=== PATIENT | male | born 1960 | race Two or more races ===

== ENCOUNTER 2017-09-16 15:24 | Emergency (ER) | payer SELFPAY ==
[~2017-09-16] VITALS: Ht 167.6 cm; Wt 73.0 kg
[2017-09-16] MEDS ORDERED: ACETAMINOPHEN 325MG TABLET PO ONE (17:15)
[2017-09-16] MEDS ORDERED: BACITRACIN ZINC OINT UDPKT TOP ONE (17:15)
[2017-09-16 17:38] VITALS: BP 163/88
== END 2017-09-16 17:47 | disposition home or self-care (01) ==
LOC: ER 15:24
DX: S90.415A Abrasion, left lesser toe(s), initial encounter (principal); X58.XXXA Exposure to other specified factors, initial encounter; Y93.89 Activity, other specified; Y92.89 Other specified places as the place of occurrence of the external cause; E11.9 Type 2 diabetes mellitus without complications; I10 Essential (primary) hypertension; F17.210 Nicotine dependence, cigarettes, uncomplicated
CPT/HCPCS: 82962; 99282